=== PATIENT | female | born 1930 | race Caucasian/White ===

== ENCOUNTER 2020-07-28 11:14 | Emergency (ER) | payer MEDICARE, OTHER ==
[~2020-07-28] VITALS: Ht 152.4 cm; Wt 74.4 kg
[2020-07-28 11:20] VITALS: BP 118/65
[2020-07-28] MEDS ORDERED: DIPH,PERTUSS(ACELL),TET VAC/PF 0.5 ML SYRINGE. VAX IM ONE (11:30)
--- NOTE | 2020-07-28 11:51 | PHYS DOC ---
Past History Past Medical History: CAD, Diabetes, High Cholesterol, Hypertension, Hypothyroid Past Surgical History: Other Additional Past Surgical Histo: CARDIA ABLATION Alcohol Use: Occasionally General Adult EDM: Chief Complaint: LACERATION/AVULSION HPI: HPI: 89-year-old female presents with left lower leg laceration. The patient was walking to the kitchen and hit her leg against the cena. She scraped off some skin and had some bleeding. Her placed towel and compression over it. Bleeding was controlled prior to arrival. They present in case she needs sutures. Her tetanus is out of date. Patient denies any other injuries. Review of Systems: Review of Systems: Constitutional: Denies fever or chills Eyes: Denies change in visual acuity HENT: Denies nasal congestion or sore throat Respiratory: Denies cough or shortness of breath Cardiovascular: Denies chest pain or edema GI: Denies abdominal pain, nausea, vomiting, bloody stools or diarrhea : Denies dysuria Musculoskeletal: Denies back pain or joint pain Integument: Skin tear left lower leg Neurologic: Denies headache, focal weakness or sensory changes Endocrine: Denies polyuria or polydipsia Lymphatic: Denies swollen glands Psychiatric: Denies depression or anxiety Current Medications: Current Meds: Current Medications Medications (Trade) Dose Ordered Sig/Jad Start Time Stop Time Status Last Admin Dose Admin Diphtheria/ Pertussis/Tetanus Vacc (ADACEL TDap SYRINGE) 0.5 ml ONCE ONCE 07/28/20 11:30 07/28/20 11:45 DC Allergies: Allergies: Allergies Coded Allergies Type Severity Reaction Last Updated Verified levofloxacin Allergy Unknown 07/28/20 Yes Physical Exam: PE: Constitutional: Well developed, well nourished, no acute distress, non-toxic appearance. [] HENT: Normocephalic, atraumatic, bilateral external ears normal, oropharynx moist, no oral exudates, nose normal. [] Eyes: PERRLA, EOMI, conjunctiva normal, no discharge. [] Neck: Normal range of motion, no tenderness, supple, no stridor. [] Cardiovascular:Heart rate regular rhythm, no murmur [] Lungs & Thorax: Bilateral breath sounds clear to auscultation [] Abdomen: Bowel sounds normal, soft, no tenderness, no masses, no pulsatile masses. [] Skin: 3 cm superficial skin tear of the left lower leg. [] Back: No tenderness, no CVA tenderness. [] Extremities: No tenderness, no cyanosis, no clubbing, ROM intact, no edema. [] Neurologic: Alert and oriented X 3, normal motor function, normal sensory function, no focal deficits noted. [] Psychologic: Affect normal, judgement normal, mood normal. [] Current Patient Data: Vital Signs: Vital Signs Date Time Temp Pulse Resp B/P (MAP) Pulse Ox O2 Delivery O2 Flow Rate FiO2 07/28/20 11:20 97.5 71 20 118/65 (82) Room Air EKG: EKG: [] Radiology/Procedures: Radiology/Procedures: [] Heart Score: Risk Factors: Risk Factors: DM, Current or recent (<one month) smoker, HTN, HLP, family history of CAD, obesity. Risk Scores: Score 0 - 3: 2.5% MACE over next 6 weeks - Discharge Home Score 4 - 6: 20.3% MACE over next 6 weeks - Admit for Clinical Observation Score 7 - 10: 72.7% MACE over next 6 weeks - Early Invasive Strategies Course & Med Decision Making: Course & Med Decision Making Pertinent Labs and Imaging studies reviewed. (See chart for details) The patient has a superficial skin tear. The part that is torn is so thin it will not benefit from sutures. We will place a clean dressing on and it will have to heal by secondary intention. Her tetanus was updated in the emergency room. She is stable for discharge at this time. [] Dragon Disclaimer: Dragon Disclaimer: This electronic medical record was generated, in whole or in part, using a voice recognition dictation system. Departure Departure: Impression: Primary Impression: Noninfected skin tear of left lower extremity Qualified Codes: S81.812A - Laceration without foreign body, left lower leg, initial encounter Disposition: 01 DC HOME SELF CARE/HOMELESS Condition: IMPROVED Referrals: PCPHIMANSHU (PCP) Patient Instructions: Skin Tear Care, [id number] DONNA JOHNSON DO Jul 28, 2020 11:51
== END 2020-07-28 12:10 | disposition home or self-care (01) ==
LOC: ER 11:14
DX: S81.812A Laceration without foreign body, left lower leg, initial encounter (principal); I25.10 Atherosclerotic heart disease of native coronary artery without angina pectoris; E11.9 Type 2 diabetes mellitus without complications; E78.00 Pure hypercholesterolemia, unspecified; I10 Essential (primary) hypertension; E03.9 Hypothyroidism, unspecified; Z88.1 Allergy status to other antibiotic agents; W22.8XXA Striking against or struck by other objects, initial encounter; Y93.01 Activity, walking, marching and hiking; Y92.090 Kitchen in other non-institutional residence as the place of occurrence of the external cause; Y99.8 Other external cause status
CPT/HCPCS: 90471; 90715; 99283

== ENCOUNTER 2021-02-12 23:48 | Inpatient (IN) | payer MEDICARE, OTHER ==
[~2021-02-12] VITALS: Ht 152.4 cm; Wt 75.1 kg
--- NOTE | 2021-02-13 00:04 | PHYS DOC ---
Past History Past Medical History: CAD, Diabetes, High Cholesterol, Hypertension, Hypothyroid Past Surgical History: Other Additional Past Surgical Histo: CARDIA ABLATION Alcohol Use: Occasionally Adult General Chief Complaint Chief Complaint: SHORTNESS OF BREATH HPI HPI Patient is an 89-year-old female with a past medical history significant for CAD, insulin-dependent diabetes, hypothyroidism, hypertension and hyperlipidemia who presents to the emergency department with a chief complaint of shortness of breath. States that it started about 4 days ago and is gotten worse over the day. Denies any recent travel, traumas, fevers, known ill contacts. Denies any chest pain, abdominal pain, nausea, vomiting, dysuria, hematuria diarrhea or blood in the stool. States she does not use oxygen at home. Review of Systems Review of Systems Review of systems otherwise unremarkable except noted in HPI Allergies Allergies Allergies Coded Allergies Type Severity Reaction Last Updated Verified levofloxacin Allergy Unknown 07/28/20 Yes Physical Exam Physical Exam Constitutional: Well developed, well nourished, no acute distress, non-toxic appearance. [] HENT: Normocephalic, atraumatic, bilateral external ears normal, oropharynx moist, no oral exudates, nose normal. [] Eyes: conjunctiva normal, no discharge. [] Neck: Normal range of motion, Cardiovascular:Heart rate regular rhythm, systolic murmur Lungs & Thorax: Decreased breath sounds bilaterally with no audible wheeze and mild generalized rhonchi Abdomen: soft, no tenderness, no masses, no pulsatile masses. [] Skin: Warm, dry, no erythema, no rash. [] Back: No tenderness, no CVA tenderness. [] Extremities: Patient has bilateral lower extremity stasis dermatitis and edema, that are bandaged from the wound clinic Neurologic: Alert and oriented X 3, normal motor function, normal sensory function, no focal deficits noted. [] Psychologic: Affect normal, judgement normal, mood normal. [] EKG EKG EKG with a rate of 86, QRS of 76, QTc of 436, no STEMI. [] Radiology/Procedures Radiology/Procedures [] Heart Score C/O Chest Pain: No Risk Factors: Risk Factors: DM, Current or recent (<one month) smoker, HTN, HLP, family history of CAD, obesity. Risk Scores: Risk Factors: DM, Current or recent (<one month) smoker, HTN, HLP, family history of CAD, obesity. Course & Med Decision Making Course & Med Decision Making Patient is an 89-year-old female who presents with 4 days of shortness of breath Placed on the monitor with IV access established. Vital signs notable for tachycardia, tachypnea, hypoxia in the 70s on room air placed on nasal cannula initially at 6 L which brought her up into the mid 80s and then switched over to nonrebreather at 10 which brought her up to around 95%. As long as patient does not move or speak it stays there but as soon as she begins to speak in full sentences or move her oxygen sats dropped into the 80s. Laboratory analysis notable for mild leukocytosis and mild elevation in creatinine. EKG noted above with no STEMI. Troponin normal. D-dimer elevated. Imaging notable for bilateral groundglass opacities. Cultures obtained. Broad-spectrum antibiotics given. Patient given dexamethasone and started on Lovenox due to concern for Covid. Covid swab pending. Discussed all findings with family and recommended admission for continued evaluation and treatment of her pneumonia and new oxygen requirement. Family grateful, verbalized understanding and agreed with plan of admission. [] Dragon Disclaimer Dragon Disclaimer This electronic medical record was generated, in whole or in part, using a voice recognition dictation system. Departure Departure: Impression: Primary Impression: Acute respiratory distress Additional Impressions: Pneumonia Hypoxia Disposition: ADMITTED INPATIENT Admitting Physician: Bharati Mcmahon Condition: IMPROVED Referrals: ROSETTA FULTON MD (PCP) Problem Qualifiers PAMELA BRIDGES MD February 13, 2021 00:04
[2021-02-13 00:32] LABS: HEMATOCRIT 36.2 % (36.0-47.0); HEMOGLOBIN 11.9 g/dL (12.0-15.5); RED BLOOD COUNT 3.87 x10^6/uL (3.50-5.40); RED CELL DISTRIBUTION WIDTH 14.5 % (11.5-14.5); WHITE BLOOD COUNT 11.6 x10^3/uL (4.0-11.0)
[2021-02-13 00:48] LABS: CALCIUM 9.1 mg/dL (8.5-10.1); CREATININE 1.2 mg/dL (0.6-1.0); GFR 42.3; POTASSIUM 4.6 mmol/L (3.5-5.1)
[2021-02-13 00:54] LABS: ALBUMIN 2.7 g/dL (3.4-5.0); ALBUMIN/GLOBULIN RATIO 0.6 (1.0-1.7); MAGNESIUM 2.1 mg/dL (1.8-2.4); TOTAL BILIRUBIN 0.5 mg/dL (0.2-1.0); TOTAL PROTEIN 7.1 g/dL (6.4-8.2)
--- NOTE | 2021-02-13 00:54 | EKG ---
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
[2021-02-13] MEDS ORDERED: CONTRAST GIVEN. MC PRN (01:45)
[2021-02-13] MEDS ORDERED: IOHEXOL 350 MG/ML 100 ML VIAL. IV ONE (02:00)
[2021-02-13] MEDS ORDERED: IV RINGERS SOLUTION,LACTATED 1,000 ML IV ONE (03:00)
--- NOTE | 2021-02-13 03:04 | RAD ---
INDICATION: Reason: OMNI 350,100ML IV.Hypoxia, elevated dimer / Spl. Instructions: / History: COMPARISON: None. TECHNIQUE: Axial CT images obtained through the chest. Intravenous contrast utilized. Angiogram 3D images proce ssed per protocol. One or more of the following individualized dose reduction techniques were utilized for this examinat ion: 1. Automated exposure control; 2. Adjustment of the mA and/or kV according to patient size; 3 . Use of iterative reconstruction technique. FINDINGS: Interstitial and groundglass opacities bilaterally with patchy consolidative component. Small pleural effusion. Partially visualized kidneys appear lobulated. Partially visualized liver appears prominent in size. Scattered lymph nodes in the mediastinum with some of them appearing mildly enlarged. Calcific athero sclerosis. This includes of the coronary arteries. There is essentially no contrast within the thoracic aorta therefore cannot evaluate the aortic lumen . Degenerative changes of spine. There are some probable old left rib fractures with callus formation. Patchy osseous demineralization . No embolus in the main, right main or left main pulmonary artery. Some of the peripheral vessels obsc ured by motion. IMPRESSION: No central pulmonary embolus with peripheral vessels obscured by motion. Interstitial and groundglass opacities bilaterally with patchy consolidative component. Could be seco ndary to infectious etiology with a component of edema also within the differential. Prominent lymph nodes in mediastinum could be reactive in nature but follow-up could be obtained to e nsure that this appropriately decreases. Electronically signed by: Pavel Lentz MD (02/13/2021 3:02 AM) [id number]
[2021-02-13] MEDS ORDERED: PIPERACILLIN/TAZOBACTAM 3.375 GM VIAL IV ONE (03:29)
[2021-02-13] MEDS ORDERED: IV NORMAL SALINE 50ML 50 ML ONE (03:29)
[2021-02-13] MEDS ORDERED: ENOXAPARIN 40 MG/0.4 ML SYRINGE. SQ ONE (03:30)
[2021-02-13] MEDS ORDERED: DEXAMETHASONE SOD PHOS 10 MG/ML VIAL. IVP ONE (03:30)
[2021-02-13] MEDS ORDERED: PIPERACILLIN/TAZOBACTAM 3.375 GM in IV NORMAL SALINE 50ML 50 ML IV ONE (03:30)
--- NOTE | 2021-02-13 04:51 | NUR ---
The patient, CAMILLE RICHTER, 89 y/o, F admitted by ADELINA FELICIANO MD, was given written information regarding hospital policies, unit procedures and contact persons. Valuables were checked and logged. Call light in place.
[2021-02-13 05:00] VITALS: BP 176/82
--- NOTE | 2021-02-13 07:22 | RAD ---
INDICATION: Reason: SOB / Spl. Instructions: / History: COMPARISON: October 2008 FINDINGS: Single view of chest obtained. Mild interstitial and groundglass opacities bilaterally. Prominent cardiomediastinal silhouette with tortuous aortic contour There is callus formation at some of the left ribs which could be from prior fracture IMPRESSION: * Interstitial and alveolar opacities bilaterally which could be from edema or infiltrate Electronically signed by: Pavel Lentz MD (02/13/2021 7:20 AM) [id number]
[2021-02-13] MEDS ORDERED: CARV3.1230 PO (10:48)
[2021-02-13] MEDS ORDERED: PRAM0.255 PO (10:48)
[2021-02-13] MEDS ORDERED: GLUC-11 PO (10:48)
[2021-02-13] MEDS ORDERED: DILT180T7 PO (10:48)
[2021-02-13] MEDS ORDERED: MIRA25TA PO (10:48)
[2021-02-13] MEDS ORDERED: SILV20CR14 TP (10:48)
[2021-02-13] MEDS ORDERED: PANT40TA6 PO (10:48)
[2021-02-13] MEDS ORDERED: BRIM5DRO3 EACHEYE (10:48)
[2021-02-13] MEDS ORDERED: LEVO100T PO (10:48)
[2021-02-13] MEDS ORDERED: VIT1CAPS12 PO (10:48)
[2021-02-13] MEDS ORDERED: ATOR10TA60 PO (10:48)
[2021-02-13] MEDS ORDERED: CARB1TAB22 PO (10:48)
[2021-02-13] MEDS ORDERED: POTA20TA4 PO (10:48)
[2021-02-13] MEDS ORDERED: METF10007 PO (10:48)
[2021-02-13] MEDS ORDERED: ASPI-630 PO (10:48)
[2021-02-13 11:15] VITALS: BP 170/83
--- NOTE | 2021-02-13 14:45 | HP ---
ADMIT DATE: 02/13/2021 HISTORY OF PRESENT ILLNESS: The patient is an 89-year-old female patient who came to the Emergency Room complaining of increasing shortness of breath that has been going on for the last 3 days. She also complained of cough that is mostly dry and has been getting worse over the last few days. Denied any recent travel, trauma, fever, known ill contact. She denied any chest pain. Denied any orthopnea or paroxysmal nocturnal dyspnea. Denied any chills, rigors or fever. She apparently has completed her COVID-19 vaccination. The last dose was about a month ago. She was extensively investigated in the Emergency Room and has had lab work, her white cell count was 11,600. Her chemistry showed slight dehydration, mild hyponatremia. Her D-dimer was 1.69. The patient had a chest x-ray, which showed interstitial and alveolar opacities bilaterally, which could be from edema or infiltrate. Her CT angio of the chest showed the patient has no central pulmonary embolus with peripheral visual obscured by motion. She has interstitial and ground glass opacities bilaterally with patchy consolidative component could be secondary to infectious etiology with a component of edema also within the differential. She has prominent lymph nodes in the mediastinum could be reactive in nature, but followup could be obtained to ensure that this is appropriately decreased. The patient was admitted with a diagnosis of community-acquired pneumonia versus COVID-19 pneumonia, acute hypoxic respiratory failure, was started on IV antibiotic in the form of Zithromax and Rocephin. She received dexamethasone as well as Lovenox and admitted for further evaluation and treatment. PAST MEDICAL HISTORY: Significant for hypertension, hyperlipidemia, type 2 diabetes mellitus, hypothyroidism, generalized osteoarthritis. She has also overactive bladder and restless leg syndrome, questionable Parkinson's disease and gastroesophageal reflux disease. PAST SURGICAL HISTORY: Significant for bilateral cataract extraction and cholecystectomy as well as what seemed to be atrial ablation. FAMILY HISTORY: Noncontributory. SOCIAL HISTORY: She is and lives with her . She quit smoking about 30 years ago. She used to smoke a pack a day, has smoked for 25 years. She drinks a glass of wine once a month. She does not use any illicit drugs. 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 ALLERGIES: SHE IS APPARENTLY ALLERGIC TO LEVOFLOXACIN. MEDICATIONS: She is currently on the following medication: She is on atorvastatin 10 mg at bedtime, carvedilol 3.125 mg once a day, diltiazem 180 mg once a day. She is on aspirin 81 mg once a day, carbidopa/levodopa for Parkinson's disease takes 25/100 one tablet twice a day. She is on pramipexole for Mirapex 0.5 mg 3 times a day for restless leg syndrome. She is on Alphagan one drop to both eyes daily. She is on Protonix 40 mg once a day, metformin 1000 mg twice a day, levothyroxine sodium for Synthroid 100 mcg once a day, silver sulfadiazine apply topically daily for her legs, Myrbetriq 25 mg once a day. She is on glucosamine/chondroitin sulfate 2 tablets once a day and she is also PreserVision added soft gel 2 capsules twice a day. REVIEW OF SYSTEMS: As per history of present illness. PHYSICAL EXAMINATION: GENERAL: On arrival to the emergency room, the patient was tachypneic, hypoxic, requiring 8 liters of oxygen by nonrebreather mask. There was no pallor, jaundice, cyanosis, no thyromegaly, no jugular venous distention, no lower limb edema. VITAL SIGNS: Her heart rate was 89, blood pressure was 176/91, temperature was 98, respiratory rate was 36 and oxygen saturation was 99% on 8 liters of oxygen. HEAD, EYES, EARS, NOSE, AND THROAT: Normocephalic, atraumatic. NECK: Supple. HEART: Showed normal first and second heart sounds. No gallop, murmur. CHEST: Clear to auscultation, no crepitation or rhonchi. Chest shows central trachea, equal bilateral expansion, air entry, vesicular breath sounds with crepitation on both sides posteriorly, more so on the right than left. ABDOMEN: Soft, nontender. NEUROLOGIC: She was grossly intact. LABORATORY DATA: Showed a white cell count of 11,600, hemoglobin 12, hematocrit 36, MCV 94 and platelet count 489,000. Her chemistry showed a serum sodium 146, potassium 4.6, chloride 110, bicarbonate 30, anion gap of 6, BUN 29, creatinine 1.2. Estimated GFR was 42 mL per minute. Her glucose 172, calcium was 9.1, magnesium was 2.1. Total bilirubin, AST, ALT, alkaline phosphatase were normal. Total protein 7.1, albumin was 2.7. Her prothrombin time was 10.4, INR of 1, APTT was 22 and D-dimer was 1.69. Her chest x-ray showed interstitial and alveolar opacities bilaterally, which could be from edema or infiltrate. CT angio showed that the patient has no central pulmonary emboli; however, interstitial and ground-glass opacities bilaterally with patchy consolidative component could be secondary to infectious etiology with a component of edema also within the differential. She was also found to have prominent lymph nodes in the mediastinum that could be reactive in nature, but followup is recommended to ensure resolution. The patient was admitted with acute hypoxic respiratory failure, probably community-acquired pneumonia. The patient has been otherwise already vaccinated against COVID. The patient was continued on IV Zithromax, Rocephin, dexamethasone, Lovenox. We will reconcile all her medication. We will monitor her. KRISH DR: Julia TID: [id number]
[2021-02-13] MEDS: CARVEDILOL 3.125 MG TABLET PO SCH (15:12)
[2021-02-13 15:56] VITALS: BP 196/97
[2021-02-13 20:09] VITALS: BP 165/85
[2021-02-13] MEDS: PRAMIPEXOLE 0.5 MG TABLET. PO SCH (21:03)
[2021-02-13] MEDS: ATORVASTATIN CALCIUM 10 MG TABLET. PO SCH (21:03)
[2021-02-13] MEDS: MULTIVITAMIN I-VITE TABLET. PO SCH (21:03)
[2021-02-13] MEDS: CARBIDOPA/LEVODOPA 25/100MG TABLET PO SCH (21:03)
[2021-02-13 23:50] VITALS: BP 183/91
[2021-02-14 05:34] VITALS: BP 189/68
[2021-02-14] MEDS: LEVOTHYROXINE 100 MCG TABLET PO SCH (06:30)
[2021-02-14] MEDS: silver sulfADIAZINE 1% CREAM 50GM JAR. TP SCH (09:00)
[2021-02-14] MEDS: BRIMONIDINE 0.2% OPHTH SOLUTION 5ML BOTTLE. OU SCH (09:00)
[2021-02-14] MEDS: MULTIVITAMIN I-VITE TABLET. PO SCH ×2 (10:54→20:33)
[2021-02-14] MEDS: POTASSIUM CHLORIDE 20 MEQ TABLET.ER. PO SCH (10:54)
[2021-02-14] MEDS: AZITHROMYCIN 250 MG TABLET. PO SCH (10:54)
[2021-02-14] MEDS: PANTOPRAZOLE 40 MG TABLET. PO SCH (10:54)
[2021-02-14] MEDS: CARVEDILOL 3.125 MG TABLET PO SCH ×2 (10:54→17:44)
[2021-02-14] MEDS: CARBIDOPA/LEVODOPA 25/100MG TABLET PO SCH ×2 (10:54→20:33)
[2021-02-14] MEDS: ASPIRIN CHEWABLE 81 MG TABLET. PO SCH (10:54)
[2021-02-14] MEDS: ENOXAPARIN 30 MG/0.3 ML SYRINGE. SQ SCH (10:55)
[2021-02-14] MEDS: MIRABEGRON 25 MG TAB.ER.24H PO SCH (10:56)
[2021-02-14] MEDS: GLUCOSAMINE/CHOND 500/400MG CAPSULE PO SCH (10:56)
[2021-02-14] MEDS: PRAMIPEXOLE 0.5 MG TABLET. PO SCH ×3 (10:57→20:33)
[2021-02-14] MEDS: DEXAMETHASONE SOD PHOS 4 MG/ML VIAL. IVP SCH (10:57)
[2021-02-14 12:40] LABS: HEMATOCRIT 35.4 % (36.0-47.0); HEMOGLOBIN 11.5 g/dL (12.0-15.5); RED BLOOD COUNT 3.79 x10^6/uL (3.50-5.40); RED CELL DISTRIBUTION WIDTH 14.5 % (11.5-14.5); WHITE BLOOD COUNT 13.8 x10^3/uL (4.0-11.0)
[2021-02-14 12:47] LABS: CALCIUM 8.8 mg/dL (8.5-10.1); CREATININE 1.3 mg/dL (0.6-1.0); GFR 38.6; POTASSIUM 4.1 mmol/L (3.5-5.1)
[2021-02-14 13:00] LABS: ALBUMIN 2.5 g/dL (3.4-5.0); ALBUMIN/GLOBULIN RATIO 0.6 (1.0-1.7); TOTAL BILIRUBIN 0.5 mg/dL (0.2-1.0); TOTAL PROTEIN 6.7 g/dL (6.4-8.2)
--- NOTE | 2021-02-14 14:07 | RAD ---
EXAM: XR CHEST 1V 02/14/2021 1:37 PM CLINICAL INDICATION: Worsening shortness of breath COMPARISON: CTA chest 02/13/2021 and chest radiograph 02/12/2021 TECHNIQUE: AP view of the chest FINDINGS: The cardiomediastinal silhouette is stable. There are mild bibasilar interstitial opacitie s, similar to prior exams. No pleural effusion or pneumothorax. Old left posterior rib fractures. IMPRESSION: No significant change in bibasilar interstitial opacities. This could be seen with pulmon reinaldo edema or atypical infection. Electronically signed by: Fany Marie MD (02/14/2021 2:05 PM) [id number]
[2021-02-14] MEDS ORDERED: FUROSEMIDE 40 MG/4 ML VIAL IVP ONE (14:30)
[2021-02-14 15:52] VITALS: BP 149/77
[2021-02-14 18:59] VITALS: BP 157/82
[2021-02-14] MEDS: ATORVASTATIN CALCIUM 10 MG TABLET. PO SCH (20:33)
[2021-02-14 22:56] VITALS: BP 161/84
--- NOTE | 2021-02-14 23:21 | PN ---
DATE: 02/14/2021 SUBJECTIVE: The patient is resting, sitting propped up in bed, continues to be somewhat tachypneic. PHYSICAL EXAMINATION: GENERAL: When I examined her, she was somewhat pale, but no jaundice, cyanosis, no lymphadenopathy, no thyromegaly, no jugular venous distention, no lower limb edema. VITAL SIGNS: Her mace rate was 109, blood pressure is 189/68. Her temperature was 97.8, respiratory rate was 20 and oxygen saturation was 91% on room air. HEAD, EYES, EARS, NOSE AND THROAT: Normocephalic, atraumatic. NECK: Supple. HEART: Showed normal first and second heart sounds, no gallop or murmur. CHEST: Showed central trachea, equal bilateral expansion and air entry; bilateral basal crepitation. I could not appreciate any rhonchi. ABDOMEN: Distended, soft, nontender. NEUROLOGIC: She is awake, alert, responding appropriately. Cranial nerves intact. She moves extremities without difficulty, although she is mostly bedbound. Her coronavirus by PCR was negative. ASSESSMENT: 1. Acute hypoxic respiratory failure. 2. Community-acquired pneumonia. Her coronavirus by PCR was negative. The patient has multiple other medical problems including: A. Hypertension. B. Hyperlipidemia. C. Type 2 diabetes mellitus. D. Hypothyroidism. E. Generalized osteoarthritis. F. Parkinson's disease. G. Restless leg syndrome. PLAN: The patient seemed to be more tachypneic today, although her PCR was negative. She is afebrile. My plan is to repeat her lab work and do a stat chest x-ray and she might require Lasix treatment. MARTHA DR: Julia TID: [id number]
[2021-02-15 05:02] VITALS: BP 155/69
[2021-02-15] MEDS: LEVOTHYROXINE 100 MCG TABLET PO SCH (05:52)
--- NOTE | 2021-02-15 05:59 | NUR ---
Pt was drowsy all shift. Pt slept most of the night but states this am that she didn't sleep good and is just worn out. Otherwise pts status unchanged. Pt using bedside commode independently without difficulty. Denies any other complaints except feeling very tired.
[2021-02-15] MEDS: metFORMIN 500 MG TABLET PO SCH ×2 (08:27→16:42)
[2021-02-15] MEDS: MIRABEGRON 25 MG TAB.ER.24H PO SCH (08:28)
[2021-02-15] MEDS: PANTOPRAZOLE 40 MG TABLET. PO SCH (08:28)
[2021-02-15] MEDS: POTASSIUM CHLORIDE 20 MEQ TABLET.ER. PO SCH (08:28)
[2021-02-15] MEDS: GLUCOSAMINE/CHOND 500/400MG CAPSULE PO SCH (08:28)
[2021-02-15] MEDS: MULTIVITAMIN I-VITE TABLET. PO SCH ×2 (08:28→19:57)
[2021-02-15] MEDS: PRAMIPEXOLE 0.5 MG TABLET. PO SCH ×3 (08:29→19:58)
[2021-02-15] MEDS: AZITHROMYCIN 250 MG TABLET. PO SCH (08:29)
[2021-02-15] MEDS: ASPIRIN CHEWABLE 81 MG TABLET. PO SCH (08:29)
[2021-02-15] MEDS: silver sulfADIAZINE 1% CREAM 50GM JAR. TP SCH (08:30)
[2021-02-15] MEDS: ENOXAPARIN 30 MG/0.3 ML SYRINGE. SQ SCH (08:30)
[2021-02-15] MEDS: DEXAMETHASONE SOD PHOS 4 MG/ML VIAL. IVP SCH (08:30)
[2021-02-15] MEDS: CARVEDILOL 3.125 MG TABLET PO SCH ×2 (08:31→16:43)
[2021-02-15] MEDS: BRIMONIDINE 0.2% OPHTH SOLUTION 5ML BOTTLE. OU SCH (08:35)
[2021-02-15] MEDS: CARBIDOPA/LEVODOPA 25/100MG TABLET PO SCH ×2 (08:35→19:57)
[2021-02-15 11:15] VITALS: BP 178/73
[2021-02-15 13:33] LABS: BASO % 0 % (0-3); EOS % 0 % (0-3); HEMATOCRIT 34.7 % (36.0-47.0); HEMOGLOBIN 11.2 g/dL (12.0-15.5); LYMPH # 0.6 x10^3/uL (1.0-4.8); LYMPH % 5 % (24-48); MEAN CORPUSCULAR HEMOGLOBIN 30 pg (25-35); MEAN CORPUSCULAR HGB CONC 32 g/dL (31-37); MEAN CORPUSCULAR VOLUME 94 fL (79-100); MONO # 0.3 x10^3/uL (0.0-1.1); MONO % 3 % (0-9); NEUT # 11.6 x10^3uL (1.8-7.7); NEUT % 93 % (31-73); PLATELET COUNT 446 x10^3/uL (140-400); RED BLOOD COUNT 3.69 x10^6/uL (3.50-5.40); RED CELL DISTRIBUTION WIDTH 14.4 % (11.5-14.5); WHITE BLOOD COUNT 12.5 x10^3/uL (4.0-11.0)
[2021-02-15 14:16] LABS: POTASSIUM ISTAT 4.4 mmol/L (3.5-5.0)
[2021-02-15 14:17] LABS: HEMOGLOBIN ISTAT 11.6 gm/dL
[2021-02-15 15:16] VITALS: BP 143/69
[2021-02-15] MEDS: IPRATRPIUM/ALBUTEROL 0.5/2.5MG 3 ML NEBU. NEB SCH ×2 (15:59→21:35)
[2021-02-15 16:11] LABS: ALBUMIN 2.6 g/dL (3.4-5.0); DIRECT BILIRUBIN 0.1 mg/dL (0.0-0.2); TOTAL BILIRUBIN 0.4 mg/dL (0.2-1.0); TOTAL PROTEIN 6.7 g/dL (6.4-8.2)
--- NOTE | 2021-02-15 17:20 | NUR ---
SHIFT NOTE Pt resting comfortably throughout shift. Pt complains of being fatigue and took naps throughout day. Pt remains on 2L of oxygen with a goal to titrate off supplemental O2. Pt states she is feeling better today than she did yesterday. Will continue to monitor. GEE, RN
[2021-02-15 19:51] VITALS: BP 148/78
[2021-02-15] MEDS: ATORVASTATIN CALCIUM 10 MG TABLET. PO SCH (19:57)
[2021-02-15] MEDS: LACTOBACILLUS RHAMNOSUS GG 1 CAPSULE. PO SCH (19:58)
--- NOTE | 2021-02-15 23:33 | PN ---
DATE: 02/15/2021 SUBJECTIVE: The patient is resting, slightly propped up in bed, no apparent distress. Her main complaint is lack of sleep because of the bed, still complaining of mild shortness of breath, but better than yesterday. PHYSICAL EXAMINATION: GENERAL: When I examined her today, she looked pale, but no jaundice, cyanosis or thyromegaly. No jugular distention. No edema. VITAL SIGNS: Heart rate was 67, blood pressure is 178/73, temperature 97.9, respiratory rate 20, and oxygen saturation was 96% on 2 liters of oxygen by nasal cannula. HEAD, EYES, EARS, NOSE AND THROAT: Normocephalic, atraumatic. NECK: Supple. HEART: Showed normal first and second heart sounds, no gallop, murmur. CHEST: Clear to auscultation. She has mild bilateral basal crepitation. I could not appreciate any rhonchi. ABDOMEN: Distended, soft, nontender. NEUROLOGIC: She was awake, alert, responding appropriately. All cranial nerves intact. EXTREMITIES: She moves all extremities without difficulty. She ambulates with a walker. Her intake was 716, no output was recorded. LABORATORY DATA: Her lab work is still pending at the time of this dictation. ASSESSMENT: 1. Acute hypoxic respiratory failure. 2. Community-acquired pneumonia. Her coronavirus PCR was negative. She is now on Zithromax and Rocephin. 3. Questionable acute diastolic congestive heart failure for which I treated her IV Lasix. 4. The patient has multiple other medical problems including: A. Hypertension. B. Hyperlipidemia. C. Type 2 diabetes mellitus. D. Hypothyroidism. E. Generalized osteoarthritis. F. Parkinson disease. G: Restless legs syndrome. PLAN: To continue with IV antibiotic. I will add DuoNebs and also continue with the incentive spirometry. Continue with physical and occupational therapy. FOREST/FRANKIE DR: Julia TID: [id number]
[2021-02-16 05:49] VITALS: BP 174/77
[2021-02-16] MEDS: IPRATRPIUM/ALBUTEROL 0.5/2.5MG 3 ML NEBU. NEB SCH ×2 (05:57→09:34)
[2021-02-16] MEDS: LEVOTHYROXINE 100 MCG TABLET PO SCH (06:04)
[2021-02-16 07:02] LABS: HEMATOCRIT 34.7 % (36.0-47.0); HEMOGLOBIN 11.2 g/dL (12.0-15.5); RED BLOOD COUNT 3.73 x10^6/uL (3.50-5.40); RED CELL DISTRIBUTION WIDTH 14.5 % (11.5-14.5); WHITE BLOOD COUNT 11.2 x10^3/uL (4.0-11.0)
[2021-02-16 07:24] LABS: CALCIUM 8.8 mg/dL (8.5-10.1); CREATININE 1.2 mg/dL (0.6-1.0); GFR 42.3; POTASSIUM 4.3 mmol/L (3.5-5.1)
[2021-02-16] MEDS: ENOXAPARIN 30 MG/0.3 ML SYRINGE. SQ SCH (08:15)
[2021-02-16] MEDS: MULTIVITAMIN I-VITE TABLET. PO SCH (08:16)
[2021-02-16] MEDS: AZITHROMYCIN 250 MG TABLET. PO SCH (08:17)
[2021-02-16] MEDS: DEXAMETHASONE SOD PHOS 4 MG/ML VIAL. IVP SCH (08:17)
[2021-02-16] MEDS: metFORMIN 500 MG TABLET PO SCH (08:17)
[2021-02-16] MEDS: LACTOBACILLUS RHAMNOSUS GG 1 CAPSULE. PO SCH (08:17)
[2021-02-16] MEDS: PANTOPRAZOLE 40 MG TABLET. PO SCH (08:17)
[2021-02-16] MEDS: ASPIRIN CHEWABLE 81 MG TABLET. PO SCH (08:17)
[2021-02-16] MEDS: CARBIDOPA/LEVODOPA 25/100MG TABLET PO SCH (08:17)
[2021-02-16] MEDS: GLUCOSAMINE/CHOND 500/400MG CAPSULE PO SCH (08:18)
[2021-02-16] MEDS: POTASSIUM CHLORIDE 20 MEQ TABLET.ER. PO SCH (08:19)
[2021-02-16] MEDS: MIRABEGRON 25 MG TAB.ER.24H PO SCH (08:19)
[2021-02-16] MEDS: PRAMIPEXOLE 0.5 MG TABLET. PO SCH ×2 (08:19→14:32)
[2021-02-16] MEDS: silver sulfADIAZINE 1% CREAM 50GM JAR. TP SCH (08:19)
[2021-02-16] MEDS: CARVEDILOL 3.125 MG TABLET PO SCH (08:20)
[2021-02-16] MEDS: BRIMONIDINE 0.2% OPHTH SOLUTION 5ML BOTTLE. OU SCH (08:21)
[2021-02-16 11:00] VITALS: BP 170/71
[2021-02-16] MEDS ORDERED: CEFD300C PO (15:37)
[2021-02-16] MEDS ORDERED: IPRA3AMP29 NEB (15:37)
[2021-02-16] MEDS ORDERED: DEXA4TAB PO (15:37)
[2021-02-16] MEDS ORDERED: AZIT250T PO (15:37)
--- NOTE | 2021-02-16 15:39 | DISCH ---
HOME HEALTH DISCHARGE/MEDS DISCHARGE INFORMATION: Discharge Date: February 16, 2021 Final Diagnosis: Problems Medical Problems: (1) Acute respiratory distress Status: Acute (2) Hypoxia Status: Acute (3) Pneumonia Status: Acute Condition on Discharge: Stable CODE STATUS: Code Status: Full HOME HEALTH: Face to Face: I certify this patient is under my care and that I, or a nurse practitioner or physician's transport assistant working with me, had a face to face encounter that meets the physician face to face encounter requirements with this patient on 02/16/2021 Medical Condition(s): Pneumonia Halfway For: Medication Management Physical Therapy For: Evalulation/Treatment Occupational Therapy For: Evaluation/Treatment Homebound Status Met By: Unsteady balance w/ amb, POST DISCHARGE ORDERS: Activity Instructions for Disc: Resume previous activity DIET AFTER DISCHARGE: Cardiac CERTIFICATION STATEMENT: Certification Statement: Based on the above finding, I certify that this patient is confined to the home and needs intermittent senior care care, physical therapy and/or speech therapy, or continues to need occupational therapy.~ This patient is under my care, and I have initiated the establishment of the plan of care.~ This patient will be followed by myself or a community physician who will periodically review the plan of care. DISCHARGE MEDICATIONS: Home Meds Active Scripts Ipratropium/Albuterol Sulfate (DUONEB 0.5-3(2.5) MG/3 ML) 3 Ml Ampul.neb, 3 ML NEB QID for COPD for 30 Days, #120 EACH Prov:ADELINA FELICIANO MD 02/16/21 Dexamethasone (DEXAMETHASONE) 4 Mg Tablet, 4 TAB PO DAILY for COPD for 3 Days, #12 TAB Prov:ADELINA FELICIANO MD 02/16/21 Azithromycin (ZITHROMAX) 250 Mg Tablet, 250 MG PO DAILY for ANTI-BIOTIC for 3 Days, #3 TAB 0 Refills Prov:ADELINA FELICIANO MD 02/16/21 Cefdinir (CEFDINIR) 300 Mg Capsule, 1 CAP PO BID for PNEUMONIA for 7 Days, #14 CAP Prov:ADELINA FELICIANO MD 02/16/21 Reported Medications Brimonidine Tartrate (ALPHAGAN P) 5 Ml Drops, 1 DROP EACHEYE DAILY for dry eye, #15 ML 3 Refills 02/13/21 Silver Sulfadiazine (SILVADENE) 20 Gm Cream..g., 1 ISI TP DAILY for legs for 7 Days, #50 GM 0 Refills apply to affected area(s) 02/13/21 Glucosamine Hcl/Chondr Collins A Na (CIDAFLEX TABLET) 1 Each Tablet, 2 TAB PO DAILY for supplement for 30 Days, #60 TAB 0 Refills 02/13/21 Aspirin (ASPIRIN) 81 Mg Tab.chew, 81 MG PO DAILY for blood thinner, TAB 02/13/21 Vit A/Vit C/Vit E/Zinc/Copper (PRESERVISION AREDS SOFTGEL) 1 Each Capsule, 2 CAP PO BID for eyes for 30 Days, #120 CAP 0 Refills 02/13/21 Pramipexole Di-Hcl (MIRAPEX) 0.25 Mg Tablet, 0.5 MG PO TID for restless legs, TAB 02/13/21 Mirabegron (MYRBETRIQ) 25 Mg Tab.er.24h, 25 MG PO DAILY for OVERACTIVE BLADDER, TAB.SR 02/13/21 Carvedilol (CARVEDILOL ) 3.125 Mg Tablet, 3.125 MG PO BIDWMEALS for CARDIAC, TAB 02/13/21 Carbidopa/Levodopa (CARBIDOPA-LEVODOPA 25-100 TAB) 1 Each Tablet, 1 TAB PO BID for parkinsons for 30 Days, #60 TAB 0 Refills 02/13/21 Atorvastatin Calcium (ATORVASTATIN CALCIUM) 10 Mg Tablet, 1 TAB PO HS for high cholesterol, #30 TAB 5 Refills 02/13/21 Levothyroxine Sodium (SYNTHROID) 100 Mcg Tablet, 1 TAB PO DAILY for low thyroid, #30 TAB 5 Refills 02/13/21 Pantoprazole Sodium (PANTOPRAZOLE SODIUM) 40 Mg Tablet.dr, 1 TAB PO DAILY for gerd, #30 TAB 3 Refills 02/13/21 Potassium Chloride (KLOR-CON M20) 20 Meq Tab.er.prt, 1 TAB PO DAILY for supplement for 30 Days, #30 TAB 0 Refills 02/13/21 Diltiazem HCl (Diltiazem 24Hr ER) 180 Mg Tab.er.24h, 1 TAB PO DAILY for heart for 30 Days, #30 TAB 0 Refills 02/13/21 Metformin Hcl (METFORMIN HCL) 1,000 Mg Tablet, 1 TAB PO BID for diabetes, #60 TAB 5 Refills 02/13/21 ADELINA FELICIANO MD February 16, 2021 15:39
--- NOTE | 2021-02-16 16:32 | NUR ---
DISCHARGE INSTRUCTIONS REVIEWED WITH PT AND . HOME O2 TANK EDUCATION GIVEN. DISCHARGE INSTRUCTIONS, EDUCATION MATERIALS, RXS AND HOME O2 TANK SENT WITH PT. PIV WAS REMOVED.
--- NOTE | 2021-02-16 20:58 | DS ---
HOSPITAL COURSE: The patient is an 89-year-old female patient was admitted with shortness of breath. Cough is mostly dry and that has been getting worse over the last few days. She denied any recent travel, trauma, fever, known ill contact. Denied any chest pain. Denied any orthopnea or paroxysmal nocturnal dyspnea. Denied any chills, rigors or fever. She has completed her COVID-19 vaccination. The last dose was about a month ago. She was extensively investigated in the emergency room. Her workup shows just mild leukocytosis, slight dehydration, mild hyponatremia. D-dimer was 1.69. X-ray showed interstitial alveolar opacities bilaterally, which could be edema or infiltrate. CT angio of the chest showed the patient has no central pulmonary embolus. She has interstitial and ground glass opacities bilaterally with patchy consolidation component could be secondary to infectious etiology. She was started on IV antibiotic and dexamethasone. We sent a COVID-19 by PCR that came back eventually negative. While in the hospital, she seemed also to be continued to be short of breath and I actually treated her with IV Lasix and responded to that very well, although we did 2 sets of cardiac enzymes that ruled out myocardial infarction. The patient has never complained of any chest pain. Her BNP was high on admission was 5975 and as of yesterday came down to 4619. PHYSICAL EXAMINATION: GENERAL: When I examined her today, she looked well and was clearly in no apparent respiratory distress. No pallor, jaundice, cyanosis, or thyromegaly. No jugular distention. No limb edema. VITAL SIGNS: Heart rate was 65, blood pressure was 170/71, temperature was 97.8, respiratory rate was 18 and oxygen saturation was 91% on room air. We did actually a 6-minute walk and she desaturates down to 87% on room air and will be discharged home on 3 liters of oxygen by nasal cannula. HEAD, EYES, EARS, NOSE, AND THROAT: Normocephalic, atraumatic. NECK: Supple. HEART: Showed normal first and second heart sounds. No gallop or murmur. CHEST: Clear to auscultation, no crepitation or rhonchi. Very few crepitation posteriorly. I could not appreciate any rhonchi. ABDOMEN: Distended, soft, nontender. NEUROLOGIC: She is awake, alert, responding appropriately. All cranial nerves intact. She moves without difficulty. Her intake and output are incompletely recorded. LABORATORY DATA: Her lab work this morning showed a serum sodium 148, potassium 4.3, chloride 108, bicarbonate 28, anion gap of 12, BUN 35, creatinine 1.2. Estimated GFR was 42 mL per minute. Her glucose 126, calcium was 8.8. Her white cell count was 11,200, hemoglobin 11, hematocrit 34, MCV 93, and platelet count of 123,000. DISCHARGE MEDICATIONS: She was discharged home to continue on Zithromax 250 mg once a day for 3 days, cefdinir 300 mg twice a day for 7 days, dexamethasone 4 mg once a day for 3 days and 2 mg once a day for 3 days and ipratropium bromide/albuterol sulfate by nebulizer 4 times a day. She will continue on all other medication including aspirin 81 mg once a day, atorvastatin 10 mg at bedtime, brimonidine tartrate or Alphagan one drop to both eyes daily, carbidopa/levodopa 25/100 one tablet twice a day, carvedilol 3.125 mg twice a day, diltiazem 180 mg once a day, glucosamine/chondroitin sulfate 2 tablets daily, levothyroxine sodium 100 mcg once a day, metformin 1000 mg twice a day, Myrbetriq 25 mg daily, Protonix 40 mg once a day, potassium chloride 20 mEq daily, Mirapex 0.5 mg 3 times a day, silver sulfadiazine cream applied topically daily and PreserVision added soft gel 2 capsules twice a day. FINAL DISCHARGE DIAGNOSES: 1. Community-acquired pneumonia. 2. Acute hypoxic respiratory failure. 3. Questionable acute on chronic diastolic congestive heart failure, which was treated with Lasix and seemed to be well compensated. 4. The patient has multiple other medical problems including: A. Hypertension. B. Hyperlipidemia. C. Type 2 diabetes mellitus. D. Hypothyroidism. E. Generalized osteoarthritis. F. Parkinson's disease. G. Restless legs syndrome. The patient will be discharged home on a tapering course of steroids, nebulized albuterol and Atrovent. Continue with Zithromax and cefdinir to complete the course of treatment. The patient was discharged home on oxygen up with a 6-minute walk, she desaturated down to 87%. The patient was advised to follow up with her primary care physician as well as her primary robotics mechanic and we will continue obviously with physical and occupational therapy as she was discharged to home with home health. COLLIN DR: Julia TID: [id number]
== END 2021-02-16 16:30 | disposition home health service (06) | DRG 177 ==
LOC: ER 23:48 → 1 SOUTH 02-13 03:16
PROVIDERS: ADMIT Internal Medicine; ATTEND Internal Medicine
DX: J15.6 Pneumonia due to other Gram-negative bacteria (principal); J96.01 Acute respiratory failure with hypoxia; I50.33 Acute on chronic diastolic (congestive) heart failure; Z20.822 Contact with and (suspected) exposure to COVID-19; E03.9 Hypothyroidism, unspecified; E11.9 Type 2 diabetes mellitus without complications; E78.00 Pure hypercholesterolemia, unspecified; E78.5 Hyperlipidemia, unspecified; G20 Parkinson's disease; G25.81 Restless legs syndrome; I25.10 Atherosclerotic heart disease of native coronary artery without angina pectoris; M15.9 Polyosteoarthritis, unspecified; J15.9 Unspecified bacterial pneumonia; K21.9 Gastro-esophageal reflux disease without esophagitis; I11.0 Hypertensive heart disease with heart failure; Z79.4 Long term (current) use of insulin; Z87.891 Personal history of nicotine dependence; Z98.41 Cataract extraction status, right eye; Z98.42 Cataract extraction status, left eye; Z90.49 Acquired absence of other specified parts of digestive tract; Z88.1 Allergy status to other antibiotic agents
CPT/HCPCS: 36415; 71045; 71275; 80047; 80048; 80053; 80076; 82947; 83735; 83880; 84484; 85025; 85027; 85379; 85610; 85730; 93005; 94618; 94640; 94760; 96365; J0696; J1100; J1650; J1940; J2543; J7120; Q9967; U0003; 97530; 97535; 99285-25